=== PATIENT | female | born 2000 | race Caucasian/White ===

== ENCOUNTER 2023-08-19 02:09 | Emergency (ER) | payer MEDICAID ==
[~2023-08-19] VITALS: Ht 165.1 cm; Wt 69.0 kg
[2023-08-19 02:29] VITALS: BP 136/84; PULSE 105; RESP 18; TEMP 98.7; O2SAT 99
== END 2023-08-19 07:05 | disposition left against medical advice (07) ==
LOC: ER 02:21
DX: M25.579 Pain in unspecified ankle and joints of unspecified foot (principal); Z53.21 Procedure and treatment not carried out due to patient leaving prior to being seen by health care provider